=== PATIENT | female | born 1945 | race Caucasian/White ===

== ENCOUNTER → 2020-11-05 | Day surgery (SDC) | payer OTHER ==
[~2020-11-05] VITALS: Ht 144.8 cm; Wt 71.2 kg
[~2020-11-05] MED LIST: CLONAZEPAM0.5 MG PO; COLESTIPOL HCL1 GM PO; DICLOFENAC SOD100 G1 TOP; DULOXETINE HCL60 MG PO; LOMOTIL1 EACH PO; MONTELUKAST SOD10 MG PO; PANTOPRAZOLE SO40 MG PO; SPIRIVA RESPIMAT4 GM IN; TRAZODONE HCL150 MG PO
[2020-11-05 08:22] LABS: HCT 40.7 % (37.0-47.0); HGB 13.8 g/dl (12.5-16.0); MCH 32.2 pg (25.0-31.0); MCHC 33.9 g/dL (32.0-36.0); MCV 94.9 fL (78.0-100.0); MPV 8.8 fL (6.0-9.5); RBC 4.29 M/uL (4.20-5.40); RDW 13.7 % (11.5-14.0); WBC 8.2 K/uL (4.0-10.5)
[2020-11-05 08:40] LABS: ALBUMIN 3.7 g/dL (3.4-5.0); BILIRUBIN - TOTAL 0.3 mg/dL (0.2-1.0); BUN/CREAT RATIO (CALC) 17.6 RATIO; CREATININE 0.74 mg/dL (0.51-0.95); GLOBULIN (CALCULATION) 3.7 g/dL; POTASSIUM 3.9 mmol/L (3.5-5.1); TOTAL PROTEIN 7.4 g/dL (6.4-8.2)
== END | disposition home or self-care (01) ==
LOC: FAS 07:23
PROVIDERS: Surgery
DX: K63.5 Polyp of colon (principal); K64.2 Third degree hemorrhoids; R19.5 Other fecal abnormalities; K62.5 Hemorrhage of anus and rectum; K58.9 Irritable bowel syndrome, unspecified; Z79.899 Other long term (current) drug therapy
CPT/HCPCS: 36415; 80053; 88305; J0690; J1610; J2250; J2704; J7120